=== PATIENT | male | born 2000 | race Two or more races ===

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

== ENCOUNTER 2019-11-06 20:00 | Emergency (ER) | payer BC ==
[2019-11-06] MEDS ORDERED: NS 0.9% 1000 ML** 1,000 ML IV ONE (20:51)
[2019-11-06] MEDS ORDERED: Ondansetron INJ* 2 MG/ML VIAL IV ONE (20:51)
[2019-11-06 21:13] LABS: ABS Lymphocytes 1.1 10^3/ul (1.0-4.8); ABS Monocytes 0.6 10^3/ul (0-0.8); ABS Neutrophils 9.5 10^3/ul (1.5-7.7); Eosinophil % 0.2 %; Hematocrit 45 % (42-52); Hemoglobin 15.9 g/dL (14.0-18.0); Lymphocyte % 9.5 %; Mean Corpuscular HGB Conc 35 g/dL (31-36); Mean Corpuscular Hemoglobin 30 pg (27-31); Mean Corpuscular Volume 86 fL (80-94); Mean Platelet Volume 7.9 fL (7.4-10.4); Nucleated Red Blood Cells % 0.2; Platelet Count 287 10^3/uL (150-450); Red Blood Count 5.28 10^6 /uL (4.18-5.48); Red Cell Distribution Width 13 % (10-15); White Blood Count 11.2 10^3/uL (3.5-10.8)
[2019-11-06 21:27] LABS: ALT 18 U/L (7-52); AST 19 U/L (13-39); Albumin 4.4 g/dL (3.2-5.2); Albumin/Globulin Ratio 1.5 (1-3); Alkaline Phosphatase 77 U/L (34-104); Anion Gap 6 mmol/L (2-11); BUN/Creatinine Ratio 14.6 (8-20); Blood Urea Nitrogen 13 mg/dL (6-24); C Reactive Protein < 1.00 mg/L (<8.01); CO2 Carbon Dioxide 30 mmol/L (22-32); Calcium 9.4 mg/dL (8.6-10.3); Chloride 101 mmol/L (101-111); EGFR African American 131.9 (>60); Globulin 2.9 g/dL (2-4); Glucose 100 mg/dL (70-100); Magnesium 2.2 mg/dL (1.9-2.7); Potassium 3.8 mmol/L (3.5-5.0); Sodium 137 mmol/L (135-145); Total Protein 7.3 g/dL (6.4-8.9)
[2019-11-06] MEDS ORDERED: Pantoprazole IV* 40 MG IV ONE (21:47)
--- NOTE | 2019-11-06 21:48 | ED ---
GI/ HPI - HPI Summary HPI Summary: 19-year-old male presents with nausea for the past couple days. He states first noticed the symptoms in the summer after he had some alcohol. He states he didn't have any intermittent abdominal pain since. He's had diarrhea and constipation. He has been having very dry skin and excess thirst. He drank some alcohol a couple days ago and his symptoms restarted. He states after he had some alcohol he had some numbness and tingling in his hands. Denies any abdominal pain currently. He states that he has been nauseous and vomiting. He states he is having looser stools. States may have been had some blood in stool. Has been taking Pepto-Bismol. He states that he was seen in urgent care and they told him to take omeprazole. He states he has been taking it for a couple days. He denies any urinary symptoms. He states that he was tested for diabetes and has been negative. He denies any family history diabetes. - History of Current Complaint Chief Complaint: EDGeneral Time Seen by Provider: 11/06/19 20:45 Stated Complaint: NAUSEA/VOMITING/BLOOD IN STOOL PER PT Pain Intensity: 0 - Allergy/Home Medications Allergies/Adverse Reactions: Allergies Allergy/AdvReac Type Severity Reaction Status Date / Time No Known Allergies Allergy Verified 11/06/19 20:19 PMH/Surg Hx/FS Hx/Imm Hx Endocrine/Hematology History: Denies: Hx Anticoagulant Therapy Cardiovascular History: Denies: Hx Cardiac Arrest History: Denies: Hx Dialysis Sensory History: Reports: Hx Contacts or Glasses Opthamlomology History: Reports: Hx Contacts or Glasses Neurological History: Denies: Hx CVA Infectious Disease History: No Infectious Disease History: Denies: Traveled Outside the [place] in Last 30 Days - Family History Known Family History: Positive: Non-Contributory - Social History Alcohol Use: Occasionally Substance Use Type: Reports: None Smoking Status (MU): Never Smoked Tobacco Review of Systems Negative: Fever Negative: Chest Pain Negative: Shortness Of Breath Positive: Vomiting, Nausea. Negative: Abdominal Pain, Diarrhea All Other Systems Reviewed And Are Negative: Yes Physical Exam Triage Information Reviewed: Yes Vital Signs On Initial Exam: Initial Vitals Temp Pulse Resp BP Pulse Ox 99.3 F 102 15 117/74 98 11/06/19 20:17 11/06/19 20:17 11/06/19 20:17 11/06/19 20:17 11/06/19 20:17 Vital Signs Reviewed: Yes Appearance: Positive: Well-Appearing Skin: Positive: Warm, Dry Head/Face: Positive: Normal Head/Face Inspection Eyes: Positive: Normal, Conjunctiva Clear ENT: Positive: Pharynx normal Respiratory/Lung Sounds: Positive: Clear to Auscultation, Breath Sounds Present Cardiovascular: Positive: Normal, RRR Abdomen Description: Positive: Nontender, Soft Bowel Sounds: Positive: Present Musculoskeletal: Positive: Normal Neurological: Positive: Normal Psychiatric: Positive: Normal Procedures - Sedation Patient Received Moderate/Deep Sedation with Procedure: No Diagnostics - Vital Signs Vital Signs Temp Pulse Resp BP Pulse Ox 11/06/19 20:49 105 17 145/79 96 11/06/19 20:45 91 96 11/06/19 20:17 99.3 F 102 15 117/74 98 - Laboratory Lab Results: Lab Results 11/06/19 11/06/19 11/06/19 Range/Units 21:01 21:01 21:01 WBC 11.2 H (3.5-10.8) 10^3/uL RBC 5.28 (4.18-5.48) 10^6 /uL Hgb 15.9 (14.0-18.0) g/dL Hct 45 (42-52) % MCV 86 (80-94) fL MCH 30 (27-31) pg MCHC 35 (31-36) g/dL RDW 13 (10-15) % Plt Count 287 (150-450) 10^3/uL MPV 7.9 (7.4-10.4) fL Neut % (Auto) 84.9 % Lymph % (Auto) 9.5 % [place] % (Auto) 5.1 % Eos % (Auto) 0.2 % Baso % (Auto) 0.3 % Absolute Neuts (auto) 9.5 H (1.5-7.7) 10^3/ul Absolute Lymphs (auto) 1.1 (1.0-4.8) 10^3/ul Absolute Monos (auto) 0.6 (0-0.8) 10^3/ul Absolute Eos (auto) 0.0 (0-0.6) 10^3/ul Absolute Basos (auto) 0.0 (0-0.2) 10^3/ul Absolute Nucleated RBC 0.0 10^3/ul Nucleated RBC % 0.2 Sodium 137 (135-145) mmol/L Potassium 3.8 (3.5-5.0) mmol/L Chloride 101 (101-111) mmol/L Carbon Dioxide 30 (22-32) mmol/L Anion Gap 6 (2-11) mmol/L BUN 13 (6-24) mg/dL Creatinine 0.89 (0.67-1.17) mg/dL Est GFR ( Amer) 131.9 (>60) Est GFR (Non-Af Amer) 109.0 (>60) BUN/Creatinine Ratio 14.6 (8-20) Glucose 100 (70-100) mg/dL Lactic Acid 1.9 (0.5-2.0) mmol/L Calcium 9.4 (8.6-10.3) mg/dL Magnesium 2.2 (1.9-2.7) mg/dL Total Bilirubin 0.70 (0.2-1.0) mg/dL AST 19 (13-39) U/L ALT 18 (7-52) U/L Alkaline Phosphatase 77 (34-104) U/L C-Reactive Protein < 1.00 (<8.01) mg/L Total Protein 7.3 (6.4-8.9) g/dL Albumin 4.4 (3.2-5.2) g/dL Globulin 2.9 (2-4) g/dL Albumin/Globulin Ratio 1.5 (1-3) Lipase 38 (11.0-82.0) U/L Result Diagrams: 11/06/19 21:01 11/06/19 21:01 Lab Statement: Any lab studies that have been ordered have been reviewed, and results considered in the medical decision making process. Re-Evaluation - Re-Evaluation First Eval Change: Improved Comment: feeling better GIGU Course/Dx - Course Course Of Treatment: 19-year-old male presents with nausea for the past couple days. He states first noticed the symptoms in the summer after he had some alcohol. He states he didn't have any intermittent abdominal pain since. He's had diarrhea and constipation. He has been having very dry skin and excess thirst. He drank some alcohol a couple days ago and his symptoms restarted. He states after he had some alcohol he had some numbness and tingling in his hands. Denies any abdominal pain currently. He states that he has been nauseous and vomiting. He states he is having looser stools. States may have been had some blood in stool. Has been taking Pepto-Bismol. He states that he was seen in urgent care and they told him to take omeprazole. He states he has been taking it for a couple days. He denies any urinary symptoms. He states that he was tested for diabetes and has been negative. He denies any family history diabetes. on exam normal physical exam. labwork without significant abnormality. Gave fluids Zofran and Protonix and feeling better. Discussed continue the omeprazole and gave Zofran. told to follow up with GI if no improvement as may have gastritis. Patient understands agrees plan. - Diagnoses Differential Diagnoses - Male: Gastritis, Vomiting, Other - anxiety Provider Diagnoses: Nausea Discharge ED - Sign-Out/Discharge Documenting (check all that apply): Patient Departure - Discharge Plan Condition: Good Disposition: HOME Prescriptions: Ondansetron ODT TAB* [Zofran 4 MG Odt TAB*] 4 mg PO Q6H PRN #20 tab.odt PRN Reason: Nausea Patient Education Materials: Acute Nausea and Vomiting (ED) Referrals: Rhett Azevedo MD [Medical Doctor] - Additional Instructions: Can take Zofran every 6 hours as needed for nausea Drink small amounts of fluid and eat small amount of food as tolerated Take Tylenol for pain as needed every 6 hours Follow up with GI Return to ED if develop any new or worsening symptoms - Billing Disposition and Condition Condition: GOOD Disposition: Home
[2019-11-06 23:00] VITALS: BP 120/66
[2019-11-06] MEDS ORDERED: O ndansetron ODT 4MG 5TAB PRPK 4 MG PAK PO ONE (23:07)
[2019-11-06 23:44] LABS: Urine Appearance Clear; Urine Bilirubin Negative (Negative); Urine Blood 1+ (Negative); Urine Color Straw; Urine Glucose Negative (Negative); Urine Ketones 1+ (Negative); Urine Nitrite Negative (Negative); Urine Protein Negative (Negative); Urine Specific Gravity 1.012 (1.010-1.030); Urine Urobilinogen Negative (Negative)
[2019-11-06 23:46] LABS: Urine Bacteria Absent (Absent); Urine Red Blood Cell Trace(0-2/hpf) (Absent); Urine White Blood Cell Trace(0-5/hpf) (Absent)
== END 2019-11-06 23:31 | disposition home or self-care (01) ==
LOC: ED 20:00
DX: R11.0 Nausea (principal)
CPT/HCPCS: 36415; 80053; 81003; 81015; 82272; 83605; 83690; 83735; 85025; 86140; 87086; 96361; 96374; 96375; 99282; A9270-GY; J2405

== ENCOUNTER 2019-12-19 23:27 | Emergency (ER) | payer BC ==
[2019-12-19] MEDS ORDERED: Glucagon* 1 MG VIAL IM ONE (23:54)
--- NOTE | 2019-12-19 23:57 | ED ---
Throat Pain/Nasal Congestion - HPI Summary HPI Summary: Patient complains of sternal chest pain radiating to upper back and right arm after trying to burp a lot to relieve gas in his stomach 2 weeks ago. Patient states he feels like food is now getting caught in his esophagus 2 days. Tolerating by mouth fluids. Patient states he was taking omeprazole for 3 weeks prior to that for recurrent mild regurgitation after eating. Patient stopped taking omeprazole 3 weeks ago because he states it did not help regurgitation. Has been diagnosed with GERD before, not currently taking any medication for same. Denies hemoptysis, fever, cough, sore throat, SOB, N/V/D, abdominal pain, change in urine, change in BM. Medical history is none. - History of Current Complaint Chief Complaint: EDChestPainROMI Time Seen by Provider: 12/19/19 23:40 Hx Obtained From: Patient Onset/Duration: Gradual Onset, Lasting Weeks Severity: Moderate Associated Signs And Symptoms: Positive: Dysphagia Cough: None - Allergies/Home Medications Allergies/Adverse Reactions: Allergies Allergy/AdvReac Type Severity Reaction Status Date / Time No Known Allergies Allergy Verified 12/19/19 23:36 Home Medications: Home Medications NK [No Home Medications Reported] 12/19/19 [History Confirmed 12/19/19] PMH/Surg Hx/FS Hx/Imm Hx Endocrine/Hematology History: Denies: Hx Anticoagulant Therapy Cardiovascular History: Denies: Hx Cardiac Arrest History: Denies: Hx Dialysis Sensory History: Reports: Hx Contacts or Glasses Opthamlomology History: Reports: Hx Contacts or Glasses EENT History: Denies: Hx Deafness Neurological History: Denies: Hx CVA Infectious Disease History: No Infectious Disease History: Denies: Traveled Outside the [place] in Last 30 Days - Family History Known Family History: Positive: Non-Contributory - Social History Alcohol Use: Occasionally Substance Use Type: Reports: None Smoking Status (MU): Never Smoked Tobacco Review of Systems Constitutional: Negative Eyes: Negative ENT: Negative Positive: Other Positive: Chest Pain Respiratory: Negative Gastrointestinal: Negative Genitourinary: Negative Musculoskeletal: Negative Skin: Negative Neurological: Negative Psychological: Normal All Other Systems Reviewed And Are Negative: Yes Physical Exam - Summary Physical Exam Summary: No crepitus noted. Triage Information Reviewed: Yes Vital Signs On Initial Exam: Initial Vitals Temp Pulse Resp BP Pulse Ox 98.7 F 91 15 123/63 98 01/20/20 23:34 12/19/19 23:34 12/19/19 23:34 12/19/19 23:34 12/19/19 23:34 Vital Signs Reviewed: Yes Appearance: Positive: Well-Appearing Skin: Positive: Warm Head/Face: Positive: Normal Head/Face Inspection Eyes: Positive: Normal Neck: Positive: Supple Respiratory/Lung Sounds: Positive: Clear to Auscultation Cardiovascular: Positive: Normal Abdomen Description: Positive: Nontender Musculoskeletal: Positive: Normal Neurological: Positive: Normal Psychiatric: Positive: Normal AVPU Assessment: Alert - [place] Coma Scale Best Eye Response: 4 - Spontaneous Best Motor Response: 6 - Obeys Commands Best Verbal Response: 5 - Oriented Coma Scale Total: 15 Procedures - Sedation Patient Received Moderate/Deep Sedation with Procedure: No Diagnostics - Vital Signs Vital Signs Temp Pulse Resp BP Pulse Ox 12/19/19 23:34 98.7 F 91 15 123/63 98 - Laboratory Lab Statement: Any lab studies that have been ordered have been reviewed, and results considered in the medical decision making process. EENT Course/Dx - Course Course Of Treatment: Patient complains of sternal chest pain radiating to upper back and right arm after trying to burp a lot to relieve gas in his stomach 2 weeks ago. Patient states he feels like food is now getting caught in his esophagus 2 days. Tolerating by mouth fluids. Patient states he was taking omeprazole for 3 weeks prior to that for recurrent mild regurgitation after eating. Patient stopped taking omeprazole 3 weeks ago because he states it did not help regurgitation. Has been diagnosed with GERD before, not currently taking any medication for same. Denies hemoptysis, fever, cough, sore throat, SOB, N/V/D, abdominal pain, change in urine, change in BM. Medical history is none. Vital signs within normal limits. Patient tolerating by mouth fluids. No change glucagon 1 mg IM. EKG sinus rhythm, heart rate of 72, normal P axis. EKG reviewed by myself and Dr. Allen and we agree LVH as read by EKG is inaccurate. Has appointment with Dr. Jolly HAMPTON in 10 days. - Diagnoses Provider Diagnoses: Esophagitis Discharge ED - Sign-Out/Discharge Documenting (check all that apply): Patient Departure - Discharge Plan Condition: Stable Disposition: HOME Patient Education Materials: Esophagitis (ED) Referrals: No Primary Care Phys,NOPCP [Primary Care Provider] - Rhett Azevedo MD [Medical Doctor] - Additional Instructions: Follow-up with your GI Dr Azevedo at your scheduled appointment. Return to the ED for any new or worsening symptoms. - Billing Disposition and Condition Condition: STABLE Disposition: Home
[2019-12-20] MEDS ORDERED: Ibuprofen TAB* 600 MG PO ONE (00:52)
[2019-12-20 01:03] VITALS: BP 109/70
== END 2019-12-20 01:03 | disposition home or self-care (01) ==
LOC: ED 23:27
DX: K20.9 Esophagitis, unspecified (principal); M54.9 Dorsalgia, unspecified; R07.9 Chest pain, unspecified
CPT/HCPCS: 93005; 96372; 99283; A9270-GY; J1610

== ENCOUNTER 2020-01-12 17:42 | Emergency (ER) | payer BC ==
--- OUTSIDE RECORDS SUMMARY | 2020-01-12 17:53 | XMS REPORT | Continuity of Care Document ---
:2000 External Reference #:[id number] Author Name Abel Pablo M.D. Address [address] [place] [address] Problems Active Problems Provider Date Superficial punctate keratitis Dottie Eduardo O.D. 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 Onset: 2019 Sinusitis Onset: Social History Type Date Description Comments Sex Unknown ETOH Use Occasionally consumes alcohol Tobacco Use Start: Unknown Patient has never smoked Recreational Drug Use Denies Drug Use Smoking Status Reviewed: 12/29/19 Patient has never smoked Allergies, Adverse Reactions, Alerts Description No Known Drug Allergies Medications Description No Active Medications Immunizations Description No Information Available Vital Signs Description No Information Available Results Description No Information Available Procedures Description No Information Available Medical Devices Description No Information Available Encounters Description No Information Available Assessments Date Code Description Provider 12/29/2019 H40.043 Steroid responder, bilateral Abel Pablo M.D. Plan of Treatment 12/29/2019 - Abel Pablo M.D.H40.043 Steroid responder, bilateralComments: Smoking can increase the risk of developing or worsening any eye related disease , as well as affect your overall health. If you are a smoker, we strongly recommend that you quit.If you are not a smoker, we strongly recommend that you do not start. TRY USING OVER THE COUNTER ARTIFICAL TEARS 2-3 TIMES A DAY TO BOTH EYES. THE BRAND I RECOMMEND IS BLINK. USE THE ARTIFICAL TEARS BEFORE YOU WORK OUT.Follow up:3 Month Follow Up DFE You can expect to have your eyes dilated at your next visit. If Dr. Pablo orders any additional testing, it may require extra time. We recommend that you bring sunglasses, as dilation drops often make you light sensitive until they wear off. We always recommend you bring someone to drive you home if you are uncomfortable driving with your eyes dilated. If you have any questions before your next visit, feel free to call our office at . Functional Status Description No Information Available Mental Status Description No Information Available Referrals Description No Information Available
--- OUTSIDE RECORDS SUMMARY | 2020-01-12 17:53 | XMS REPORT | Continuity of Care Document ---
:2000 External Reference #:[id number] Author Name Rhett Azevedo MD Address [address] [place] [id number] Problems Active Problems Provider Date Gastroesophageal reflux disease Rhett Azevedo MD Onset: 12/29/2019 Social History Type Date Description Comments Sex Unknown Tobacco Use Start: Unknown Patient has never smoked Smoking Status Reviewed: 12/29/19 Patient has never smoked Allergies, Adverse Reactions, Alerts Active Allergies Reaction Severity Comments Date NKDA 12/29/2019 Pollen 12/29/2019 Dust 12/29/2019 Medications Active Medications SIG Qnty Indications Ordering Provider Date Probiotic Unknown Immunizations Description No Information Available Vital Signs Date Vital Result Comment 12/29/2019 3:14pm Height 68.5 inches 5'8.50" Weight 130.00 lb BP Systolic 112 mmHg BP Diastolic 62 mmHg Heart Rate 83 /min BMI (Body Mass Index) 19.5 kg/m2 Results Description No Information Available Procedures Description No Information Available Medical Devices Description No Information Available Encounters Description No Information Available Assessments Date Code Description Provider 12/29/2019 K21.9 Gastro-esophageal reflux disease without Rhett Azevedo MD esophagitis Plan of Treatment Future Appointment(s):01/09/2020 8:30 am - Rhett Az[facility]edo MD at [facility]12/29/2019 - Rhett Azevedo MDK21.9 Gastro- esophageal reflux disease without esophagitisComments:RISKS AND BENEFITS OF THE PROCEDURE WERE DISCUSSED WITH PATIENT. Had a very long discussion with the patient regarding all of his symptoms.. We discussed GERD and esophagitis we discussed hiatal hernias Zenker's diverticulum. We also discussed his episode of very hard and painful burping. I would like to begin his evaluation with an upper endoscopy is understanding and agreeable I will make arrangements for it Functional Status Description No Information Available Mental Status Description No Information Available Referrals Description No Information Available
[2020-01-12 19:08] VITALS: BP 137/69
--- NOTE | 2020-01-12 19:12 | UC ---
Hand/Wrist HPI - HPI Summary HPI Summary: 19 yo male presents with muscle aches. He tells me that over the last month he has been having muscles aches in his arms, legs, chest, and abdomen. He admits he has been working out almost daily over the last few months focusing mainly on strength and weight lifting. About a week ago he was doing bicep curls and felt cramping in his right biceps. Since that time his right biceps feels "soft and squishy" and he complains that it does not get fatigued like his left arm when he does biceps curls. He was also having some chest/abdominal pain about a week ago and was seen in the ED for this - workup was normal/negative. Symptoms feel better with rest. He has not taken anything OTC for his symptoms. He denies specific injury, numbness, tingling. He is right handed. He has not noticed any changes in his urine such as brown appearance or discoloration from norm. - History Of Current Complaint Chief Complaint: UCUpperExtremity Stated Complaint: RT ARM PAIN Time Seen by Provider: 01/12/20 19:10 Hx Obtained From: Patient Onset/Duration: Gradual Onset Severity Currently: None Pain Intensity: 0 - Allergies/Home Medications Allergies/Adverse Reactions: Allergies Allergy/AdvReac Type Severity Reaction Status Date / Time No Known Allergies Allergy Verified 01/12/20 19:08 Home Medications: Home Medications NK [No Home Medications Reported] 01/12/20 [History Confirmed 01/12/20] PMH/Surg Hx/FS Hx/Imm Hx - Additional Past Medical History Additional PMH: None - Surgical History Surgical History: Yes Surgery Procedure, Year, and Place: left elbow repair - Family History Known Family History: Positive: None - Social History Occupation: Student Lives: With Family Alcohol Use: Occasionally Substance Use Type: None Smoking Status (MU): Never Smoked Tobacco Review of Systems All Other Systems Reviewed And Are Negative: No Constitutional: Positive: Negative Skin: Positive: Negative Respiratory: Positive: Negative Cardiovascular: Positive: Negative Neurovascular: Positive: Negative Musculoskeletal: Positive: Other: - Arm cramping Neurological/Mental Status: Positive: Negative Psychological: Positive: Negative Physical Exam - Summary Physical Exam Summary: GENERAL: NAD. WDWN. No pain distress. SKIN: No rashes, sores, lesions, or open wounds. CHEST: No accessory muscle use. Breathing comfortably and in no distress. CV: Pulses intact radial and ulnar. Cap refill <2seconds MSK: RIGHT BICEPS: Intact. No muna muscle. NTTP. No edema or deformity. No ecchymosis or erythema. Shoulder and elbow FROM. Strength 5/5 including manager export strength. NEURO: Alert. Sensations intact hand and all fingers. PSYCH: Age appropriate behavior. Triage Information Reviewed: Yes Vital Signs: Initial Vital Signs Temp 97.8 F 01/12/20 19:04 Pulse 80 01/12/20 19:04 Resp 16 01/12/20 19:04 BP 137/69 01/12/20 19:04 Pulse Ox 100 01/12/20 19:04 Vital Signs Reviewed: Yes Hand/Wrist Course/Dx - Course Course Of Treatment: Discussed normal labwork last week and normal exam today. I am unsure why he is having muscle cramping - it could be from working out daily. Advised to rest and try OTC CoQ10. F/u with [facility]. - Differential Dx/Diagnosis Provider Diagnosis: Muscle ache Discharge ED - Sign-Out/Discharge Documenting (check all that apply): Patient Departure All imaging exams completed and their final reports reviewed: No - Discharge Plan Condition: Stable Disposition: HOME Patient Education Materials: Musculoskeletal Pain (ED) Referrals: Geronimo Souza MD [Primary Care Provider] - [facility] [Provider Group] - As Soon As Possible Additional Instructions: Your exam was normal and your labwork from last week was reviewed and is normal. I am unsure why you are having muscle aches. I recommend trying an over the counter supplement called coenzyme Q10 (CoQ10) that may help. Please call [facility] at the number below for further evaluation - Billing Disposition and Condition Condition: STABLE Disposition: Home - Attestation Statements Provider Attestation: This patient was not seen by me. I was available for consult. Chart reviewed. GINGER
--- NOTE | 2020-01-13 10:02 | UC ---
Course/Dx - Diagnoses Provider Diagnoses: Muscle ache Discharge ED - Sign-Out/Discharge Documenting (check all that apply): Post-Discharge Follow Up All imaging exams completed and their final reports reviewed: No Studies - Discharge Plan Condition: Stable Disposition: HOME Patient Education Materials: Musculoskeletal Pain (ED) Referrals: [facility] [Provider Group] - As Soon As Possible Geronimo Souza MD [Primary Care Provider] - Additional Instructions: Your exam was normal and your labwork from last week was reviewed and is normal. I am unsure why you are having muscle aches. I recommend trying an over the counter supplement called coenzyme Q10 (CoQ10) that may help. Please call [facility] at the number below for further evaluation - Billing Disposition and Condition Condition: STABLE Disposition: Home
== END 2020-01-12 19:52 | disposition home or self-care (01) ==
LOC: UCEAST 17:42 → MERGE 17:42 → UCEAST 19:52
DX: M79.601 Pain in right arm (principal)
CPT/HCPCS: 99201; G0463

== ENCOUNTER 2020-02-15 02:29 | Emergency (ER) | payer BC ==
--- NOTE | 2020-02-15 02:57 | ED ---
Upper Extremity Pain - HPI Summary HPI Summary: Patient is a 19 y/o M presenting to [facility] with complaints of right elbow and right shoulder pain secondary to fall. He states that he was running [employer] when his legs buckled. He fell and landed on his right side. Pain subsequently onset. He states that he cannot straighten his right arm fully. Movement aggravates his pain. He states that he has some minimal intermittent tingling to his fingers. No numbness is noted. He claims to have an undiagnosed neuromuscular condition that he is being evaluated for currently. Patient is a student at [employer]. Home medications and allergies are reviewed. - History of Current Complaint Chief Complaint: EDExtremityUpper Stated Complaint: FELL ON ARM PER PT Time Seen by Provider: 02/15/20 02:43 Hx Obtained From: Patient Mechanism Of Injury: Fall From A Standing Position Onset/Duration: Still Present Timing: Constant Pain Location: Shoulder, Elbow Associated Signs & Symptoms: Positive: Numbness/Tingling - tingling of fingers, right, no numbness - Allergies/Home Medications Allergies/Adverse Reactions: Allergies Allergy/AdvReac Type Severity Reaction Status Date / Time No Known Allergies Allergy Verified 02/15/20 02:34 Home Medications: Home Medications Bisacodyl EC TAB* [Dulcolax EC TAB*] 1 - 2 tab PO DAILY PRN 01/07/20 [History Confirmed 02/15/20] Ibuprofen TAB* [Advil TAB*] 200 mg PO Q8H PRN 01/09/20 [History Confirmed ] Melatonin 5 - 10 mg PO BEDTIME PRN 01/09/20 [History Confirmed 02/15/20] Cyclobenzaprine TAB* [Flexeril 10 MG TAB*] 10 mg PO TID PRN #15 tab 02/15/20 [Rx ] Omeprazole 20 mg PO DAILY PRN 02/15/20 [History Confirmed 02/15/20] PMH/Surg Hx/FS Hx/Imm Hx Endocrine/Hematology History: Denies: Hx Anticoagulant Therapy Cardiovascular History: Denies: Hx Cardiac Arrest History: Denies: Hx Dialysis Musculoskeletal History: Denies: Hx Rheumatoid Arthritis, Hx Osteoporosis Sensory History: Reports: Hx Contacts or Glasses Denies: Hx Deafness Opthamlomology History: Reports: Hx Contacts or Glasses Neurological History: Denies: Hx CVA - Surgical History Surgery Procedure, Year, and Place: left elbow repair Infectious Disease History: No Infectious Disease History: Denies: Traveled Outside the [place] in Last 30 Days - Family History Known Family History: Positive: Cardiac Disease - Social History Alcohol Use: Occasionally Alcohol Amount: none in past 3 months Substance Use Type: Reports: None Smoking Status (MU): Never Smoked Tobacco Review of Systems Positive: Myalgia Positive: Paresthesia. Negative: Numbness All Other Systems Reviewed And Are Negative: Yes Physical Exam - Summary Physical Exam Summary: Appearance: Well-appearing, Well-nourished, lying in bed comfortable Skin: Warm, dry, no obvious rash Eyes: sclera anicteric, no conjunctival pallor HENT: mucous membranes moist Neck: deferred Respiratory: No signs of respiratory distress Cardiovascular: Appears well perfused, pulses are nml Abdomen: deferred Musculoskeletal: Right upper extremity is with diffuse tenderness about the shoulder and elbow. There is no focal point tenderness or deformity. Distal movement and sensation is normal. Neurological: Awake and alert, mentation is normal, speech is fluent and appropriate Psychiatric: affect is normal, does not appear anxious or depressed Triage Information Reviewed: Yes Vital Signs On Initial Exam: Initial Vitals Temp Pulse Resp BP Pulse Ox 97.8 F 100 18 132/82 98 02/15/20 02:30 02/15/20 02:30 02/15/20 02:30 02/15/20 02:30 02/15/20 02:30 Vital Signs Reviewed: Yes Procedures - Sedation Patient Received Moderate/Deep Sedation with Procedure: No Diagnostics - Vital Signs Vital Signs Temp Pulse Resp BP Pulse Ox 02/15/20 02:30 97.8 F 100 18 132/82 98 - Laboratory Lab Statement: Any lab studies that have been ordered have been reviewed, and results considered in the medical decision making process. - Radiology RIGHT SHOULDER X-RAY Radiology Interpretation Completed By: ED Physician Summary of Radiographic Findings: NO FRACTURE OR DISLOCATION, PENDING OFFICIAL REPORT. RIGHT ELBOW X-RAY Radiology Interpretation Completed By: ED Physician Summary of Radiographic Findings: NO FRACTURE OR DISLOCATION, PENDING OFFICIAL REPORT. Course/Dx - Course Course Of Treatment: Patient is a 19 y/o M presenting to [facility] with complaints of right elbow and right shoulder pain secondary to fall. He states that he was running [employer] when his legs buckled. He fell and landed on his right side. Pain subsequently onset. He states that he cannot straighten his right arm fully. Movement aggravates his pain. He states that he has some minimal intermittent tingling to his fingers. No numbness is noted. He claims to have an undiagnosed neuromuscular condition that he is being evaluated for currently. Patient is a student at [employer]. On physical exam, right upper extremity is with diffuse tenderness about the shoulder and elbow. There is no focal point tenderness or deformity. Distal movement and sensation is normal. Right shoulder and elbow x- ray showed no fracture or dislocation. During ED course, patient received Flexeril 10 mg PO. He was discharged to home with prescription for Flexeril and PCP followup. - Diagnoses Provider Diagnoses: Contusion of right shoulder, Sprain of right elbow Discharge ED - Sign-Out/Discharge Documenting (check all that apply): Patient Departure - discharge - Discharge Plan Condition: Good Disposition: HOME Prescriptions: Cyclobenzaprine TAB* [Flexeril 10 MG TAB*] 10 mg PO TID PRN #15 tab PRN Reason: Spasms - Muscle Patient Education Materials: Contusion in Adults (ED), Elbow Sprain (ED) Referrals: Geronimo Souza MD [Medical Doctor] - Additional Instructions: I do not see any broken bones in the elbow or shoulder, but the radiologist will be over reading the films in the morning and we will contact you with any significant discrepancy. For now you can take OTC pain medication and rest the arm in the sling. If it is getting better over the next week or two, no specific followup is needed, but if not you should seek out a more thorough evaluation by an orthopedic surgeon at your home. - Billing Disposition and Condition Condition: GOOD Disposition: Home - Attestation Statements Document Initiated by Jessika: Yes Documenting Scribe: CODY HAGEN Provider For Whom Jessika is Documenting (Include Credential): ANASTASIIA SANCHEZ MD Scribe Attestation: I, CODY HAGEN, scribed for ANASTASIIA SANCHEZ MD on 02/15/20 at 0611. Scribe Documentation Reviewed: Yes Provider Attestation: The documentation as recorded by the CODY butler accurately reflects the service I personally performed and the decisions made by me, ANASTASIIA SANCHEZ MD Status of Scribe Document: Viewed
[2020-02-15] MEDS ORDERED: Cyclobenzaprine TAB* 10 MG PO ONE (03:44)
--- OUTSIDE RECORDS SUMMARY | 2020-02-15 04:04 | XMS REPORT | Continuity of Care Document ---
:2000 External Reference #:[id number] Author Name Rhett Azevedo MD Address [address] [place] [id number] Care Team Providers Name Role Phone Yakov Bond MD Care Team Information Ophthalmic Surgical Assistant [phone] Problems Active Problems Provider Date Gastroesophageal reflux disease Rhett Azevedo MD Onset: 12/29/2019 Social History Type Date Description Comments Sex Unknown Tobacco Use Start: Unknown Patient has never smoked Smoking Status Reviewed: 12/29/19 Patient has never smoked Allergies, Adverse Reactions, Alerts Active Allergies Reaction Severity Comments Date NKDA 12/29/2019 Pollen 12/29/2019 Dust 12/29/2019 Medications Active Medications SIG Qnty Indications Ordering Date Provider Omeprazole 1 by mouth bid x 28caps Rhett Chavez 01/18/[address] sumit Azevedo MD Amoxicillin 2 tablets by 56chrissy Chavez 01/18/2020 500mg Capsules mouth twice a MD Jolly day for 14 days Clarithromycin 1 by mouth twice 28tabs Rhett Chavez 01/18/2020 500mg a day x 14 days MD Jolly Tablets Probiotic Unknown Immunizations Description No Information Available Vital Signs Date Vital Result Comment 12/29/2019 3:14pm Height 68.5 inches 5'8.50" Weight 130.00 lb BP Systolic 112 mmHg BP Diastolic 62 mmHg Heart Rate 83 /min BMI (Body Mass Index) 19.5 kg/m2 Results Test Acquired Date Facility Test Result H/L Range Note Laboratory test 01/09/2020 [facility] [place] SEE RESULT 1 finding Pathology Order BELOW Laboratory test 01/09/2020 [facility] [place] Clotest SEE RESULT 2 finding BELOW 1 SEE RESULT BELOW Name: CHARLES HENSLEY : [address]: Rhett Azevedo MD Acct: [id number] Unit: [id number] AGE: 19 Location: ENDO Re01/09/20 SEX: M Status: REG REF SPEC: [id number] MARY ANN: 01/09/20- SUBM DR: Rhett Azevedo MD REQ: [id number] RECD: 01/09/20 STATUS: TYREL ORTEGA DR: Yakov Bond MD _ ORDERED: LEVEL 4/2 FINAL DIAGNOSIS 1. Small bowel, duodenum, biopsy: -- Small bowel mucosa with normal villous architecture and no significant pathologic abnormality. -- No villous blunting or increased lamina propria lymphoplasmacytic infiltrate. 2. Esophagus, biopsy: -- Superficial squamous mucosa with no significant pathologic abnormality. -- No evidence of reflux or allergic/eosinophilic esophagitis identified. POST-OPERATIVE DIAGNOSIS EGD: esophagus - normal; biopsy; gastric - normal; biopsy; duodenum - normal ; biopsy GROSS DESCRIPTION 1. The specimen is received in formalin labeled, Biopsy Duodenum, and consists of two phillips-pink irregular soft tissue fragments measuring 0.2 x 0.2 x 0.2 cm and 0.5 by up to 0.3 x 0.1 cm which are submitted entirely in one cassette. 2. The specimen is received in formalin labeled, Biopsy Esophagus, and consists of two phillips-white irregular soft tissue fragments measuring 0.3 by up to 0.3 x 0.1 cm and 0.5 x 0.2 x 0.1 cm which are submitted entirely in one cassette. Signed by and Reported on: Altaf Quintanilla MD 10/19 1128 END OF REPORT DEPARTMENT OF PATHOLOGY, [address] [place] [address] Altaf Quintanilla M.D. Director [facility] # [id number] 2 SEE RESULT BELOW Name: CHARLES HENSLEY : [address]: Rhett Azevedo MD Acct: [id number] Unit: [id number] AGE: 19 Location: ENDO Re01/09/20 SEX: M Status: REG REF SPEC: [id number] MARY ANN: 01/09/20-[address] [facility] [address]: Rhett Azevedo MD REQ: [id number] RECD: 01/09/20 STATUS: ABHAY ORTEGA DR: Shital Primary Care Phys,NOPCP _ SOURCE: GAS ANTRUM SPDESC: ORDERED: Clotest Procedure Result Reported Site Clotest Final 01/09/20- 1155 ML Clotest Positive * ML - Main Lab . END OF REPORT DEPARTMENT OF PATHOLOGY, [address] [place] [address] Altaf Quintanilla M.D. Director [facility] # [id number] Procedures Date Code Description Status 01/09/2020 78015 Moderate Sedation Services; Same Phys Intl 15 Mins; PT >= Completed 5 Years 01/09/2020 12653 EGD+Biopsy Single Or Multiple Completed Medical Devices Description No Information Available Encounters Type Date Location Provider Dx Diagnosis Office Visit 12/29/2019 Gastroenterology Rhett Chavez K21.9 [facility] MD Jolly reflux disease without esophagitis Assessments Date Code Description Provider 01/09/2020 R13.10 Dysphagia, unspecified Rhett Azevedo MD 12/29/2019 K21.9 Gastro-esophageal reflux disease without Rhett Azevedo MD esophagitis Plan of Treatment 12/29/2019 - Rhett Azevedo MDK21.9 Gastro-esophageal reflux disease without esophagitisComments:RISKS AND BENEFITS OF THE PROCEDURE WERE DISCUSSED WITH PATIENT. Had a very long discussion with the patient regarding all of his symptoms.. We discussed GERD and esophagitis we discussed hiatal hernias Zenker 's diverticulum. We also discussed his episode of very hard and painful burping. I would like to begin his evaluation with an upper endoscopy is understanding and agreeable I will make arrangements for it Functional Status Description No Information Available Mental Status Description No Information Available Referrals Description No Information Available
--- OUTSIDE RECORDS SUMMARY | 2020-02-15 04:04 | XMS REPORT | Continuity of Care Document ---
:2000 External Reference #:[id number] Author Name Rhett Azevedo MD Address [address] [place] [id number] Care Team Providers Name Role Phone Yakov Bond MD Care Team Information Jewel Inspector [phone] Problems Active Problems Provider Date Gastroesophageal reflux [...] Result H/L Range Note Laboratory test 01/09/2020 [facility] [place] Surgical SEE RESULT 1 finding Pathology Order BELOW Laboratory test 01/09/2020 [facility] [place] Clotest SEE RESULT 2 finding BELOW 1 SEE RESULT BELOW Name: CHARLES HENSLEY : [address]: Rhett Azevedo MD Acct: [id number] Unit: [id number] AGE: 19 Location: ENDO Re01/09/20 SEX: M Status: REG REF SPEC: [id number] MARY ANN: 01/09/20- SUBM DR: Rhett Azevedo MD REQ: [id number] RECD: 01/09/20 STATUS: TYREL ORTEGA DR: Yakov [...] 1128 END OF REPORT DEPARTMENT OF PATHOLOGY, [address] [place] [address] Altaf Quintanilla M.D. Director [facility] # [id number] 2 SEE RESULT BELOW Name: CHARLES HENSLEY : [address]: hRett Azevedo MD Acct: [id number] Unit: [id number] AGE: 19 Location: ENDO Re01/09/20 SEX: M Status: REG REF SPEC: [id number] MARY ANN: 01/09/20-[address] [facility] [address]: Rhett Azevedo MD REQ: [id number] RECD: 01/09/20 STATUS: ABHAY ORTEGA DR: Shital Primary Care Phys,NOPCP _ SOURCE: GAS ANTRUM SPDESC: ORDERED: Clotest Procedure Result Reported Site Clotest Final 01/09/20- 1155 ML Clotest Positive * ML - Main Lab . END OF REPORT DEPARTMENT OF PATHOLOGY, [address] [place] [address] Altaf Quintanilla M.D. Director [facility] # [id number] Procedures Description No Information Available Medical Devices Description No Information Available Encounters Type Date Location Provider Dx Diagnosis Office Visit 12/29/2019 Gastroenterology Rhett Chavez K21.9 [facility] MD Jolly reflux disease without esophagitis Assessments Date Code Description Provider 12/29/2019 K21.9 [...]
[2020-02-15 04:24] VITALS: BP 118/72
--- NOTE | 2020-02-15 07:55 | ED ---
Imaging and Labs Follow Up Follow Up Type: Imaging Imaging Result: iMPRESSION: JOINT EFFUSION WITH PROBABLE NONDISPLACED FRACTURE OF THE RADIAL HEAD. Patient Communication/Plan: left vm explaining results. told to use sling and follow up with ortho. Provider Diagnoses: Contusion of right shoulder, Sprain of right elbow
== END 2020-02-15 04:00 | disposition home or self-care (01) ==
LOC: ED 02:29
DX: S40.011A Contusion of right shoulder, initial encounter (principal); S53.401A Unspecified sprain of right elbow, initial encounter; W18.30XA Fall on same level, unspecified, initial encounter; Y93.02 Activity, running; Y92.9 Unspecified place or not applicable
CPT/HCPCS: 99282; A9270-GY